=== PATIENT | male | born 1980 | race Caucasian/White ===

== ENCOUNTER 2020-02-09 18:27 | Emergency (ER) | payer OTHER ==
[2020-02-09 20:30] LABS: HEMOGLOBIN 12.3 gm/dl (14.0-17.5); RED BLOOD COUNT 4.36 M/UL (4.20-5.50); WHITE BLOOD COUNT 9.5 K/UL (4.5-11.0)
[2020-02-09 20:41] LABS: BUN/CREATININE RATIO 17 (0-10)
[2020-02-09] MEDS ORDERED: ALPRAZOLAM1 MG PO (23:13)
[2020-02-09] MEDS ORDERED: GABAPENTIN800 MG PO (23:13)
[2020-02-10 04:18] LABS: HEMOGLOBIN 11.8 gm/dl (14.0-17.5); RED BLOOD COUNT 4.1 M/UL (4.20-5.50)
[2020-02-10 04:24] LABS: WHITE BLOOD COUNT 6.1 K/UL (4.5-11.0)
[2020-02-10 04:42] LABS: BUN/CREATININE RATIO 13 (0-10)
== END 2020-02-10 14:37 | disposition left against medical advice (07) ==
LOC: ER1 18:27 → CDU 22:27 → ER1 22:27
PROVIDERS: Emergency Medicine; Internal Medicine
DX: A41.9 Sepsis, unspecified organism (principal); L03.115 Cellulitis of right lower limb; Z87.828 Personal history of other (healed) physical injury and trauma; Z53.20 Procedure and treatment not carried out because of patient's decision for unspecified reasons; Z20.828 Contact with and (suspected) exposure to other viral communicable diseases
CPT/HCPCS: 73590; 80048; 80053; 83605; 85025; 85652; 86140; 87040; 90471; 96365; 96366; 96368; 96372; 96376; 99283; J1650; J2543; J3370; J7030; J7070; U0002